=== PATIENT | male | born 1960 | race Caucasian/White ===

== ENCOUNTER 2017-08-24 13:37 | Inpatient (IN) ==
[2017-08-24] MEDS ORDERED: HYDROmorphone 2 MG/1 ML VIAL IV STA ×2 (13:54→15:30)
[2017-08-24] MEDS ORDERED: LACTATED RINGERS 1,000 ML IV STA (13:54)
[2017-08-24] MEDS ORDERED: ONDANSETRON 4 MG/2 ML VIAL IV STA ×2 (13:54→15:30)
[2017-08-24] MEDS ORDERED: ONDANSETRON 4 MG/2 ML VIAL ONE ×2 (13:55→15:30)
[2017-08-24] MEDS ORDERED: HYDROmorphone 2 MG/1 ML VIAL ONE ×2 (13:55→15:30)
[2017-08-24 16:10] LABS: Basophils # 0.1 10*3/uL (0.0-0.2); Basophils % 0.3 % (0.0-0.8); Hematocrit 45.4 VOL% (42.0-52.0); Immature Granulocytes Absolute 0.22 #; Lymphocytes # 1.1 10*3/uL (1.4-4.0); Lymphocytes % 5.4 % (21.2-54.2); Mean Corpuscular Hemoglobin 32 PG (27-34); Mean Corpuscular Volume 97.6 FL (87-102); Mean Platelet Volume 9.1 FL (9.6-12.0); Monocytes % 9.4 % (1.7-12.7); Neutrophils # 17.7 10*3/uL (1.4-7.4); Neutrophils % 83.9 % (38.7-73.9); Platelet Count 174 T/CUMM (130-400); Red Blood Count 4.65 MC/CUMM (3.8-5.5); Red Cell Distribution Width 13.2 % (9.3-17.3); White Blood Count 21.1 T/CUMM (4-12)
[2017-08-24 16:20] LABS: PT Patient Result 10.7 SECS; Partial Thromboplastin Time 23.8 SECS (0-40)
[2017-08-24] MEDS ORDERED: cefTRIAXone 1,000 MG in SODIUM CHLORIDE 0.9% 100 ML IV STA (16:22)
[2017-08-24 16:29] LABS: Alanine Aminotransferase 41 U/L (16-61); Albumin 4.1 G/DL (3.4-5.0); Alkaline Phosphatase 47 U/L (45-117); Amylase 37 U/L (25-115); Aspartate Amino Transferase 29 U/L (0-37); Blood Urea Nitrogen 25 MG/DL (7-18); Calcium 8.9 MG/DL (8.5-10.1); Glucose 136 MG/DL (74-106); Osmolality,Calculated 288.1 MOS/KG (273-304); Potassium 4.2 MMOL/L (3.5-5.1); Sodium 142 MMOL/L (136-145); Total Protein 6.9 G/DL (6.4-8.3)
[2017-08-24 16:31] LABS: CKMB % 1.7 %; Troponin I Only < 0.015 NG/ML (0.00-0.045)
[2017-08-24 16:32] LABS: Lactic Acid 2.9 MMOL/L (0.4-2.0)
[2017-08-24] MEDS ORDERED: cefTRIAXone 1,000 MG VIAL ONE (16:40)
[2017-08-24 17:25] LABS: Lymphocytes 4 % (20-55); Platelet Estimate Normal; Segmented Neutrophils 88 % (50-85); Total Cells Counted 100
[2017-08-24] MEDS ORDERED: ALUM/MAG/SIMETH/LIDO VISC 1:1 30 ML BOTTLE PO ONE (20:22)
[2017-08-24] MEDS: HYDROmorphone 2 MG/1 ML VIAL IV PRN (21:56)
[2017-08-24] MEDS: ONDANSETRON 4 MG/2 ML VIAL IV PRN (21:57)
[2017-08-24] MEDS: SUCRALFATE 1 GM TABLET PO SCH (22:05)
[2017-08-24] MEDS: METOPROLOL TARTRATE 50 MG TABLET PO SCH (22:05)
[2017-08-24] MEDS: ALBUTEROL/IPRATROPIUM 3 ML NEB RESP TX SCH (22:51)
[2017-08-25] MEDS: ALBUTEROL/IPRATROPIUM 3 ML NEB RESP TX SCH ×6 (01:13→19:26)
[2017-08-25] MEDS: HYDROmorphone 2 MG/1 ML VIAL IV PRN ×2 (02:04→06:00)
[2017-08-25] MEDS: ONDANSETRON 4 MG/2 ML VIAL IV PRN ×2 (02:05→06:08)
[2017-08-25] MEDS: LACTATED RINGERS 1,000 ML IV SCH ×4 (03:30→23:02)
[2017-08-25 03:36] LABS: Apearance,Urine CLEAR (Clear); Bilirubin,Urine Negative (Negative); Blood, Urine Moderate mg/dL (Negative); Glucose,Urine (UA) Negative (Negative); Ketones,Urine Negative (Negative); Mucus,Urine Occasional /LPF (Occasional); Nitrite,Urine Negative (Negative); Protein,Urine Negative; RBC,Urine 2 /HPF (0-4); Sperm,Urine Occasional /HPF (Negative); Urine Color Yellow (Yellow); Urine Specific Gravity 1.048 (1.001-1.035); Urine Urobilinogen < 2.0 EU/DL (0.2-1.0); WBC,Urine 2 /HPF (0-6)
[2017-08-25] MEDS ORDERED: cefTRIAXone 1,000 MG in SYRINGE 1 EACH IV SCH (05:00)
[2017-08-25 07:32] LABS: Basophils % 0.2 % (0.0-0.8); Hematocrit 40.1 VOL% (42.0-52.0); Immature Granulocytes % 0.7 %; Lymphocytes # 1.6 10*3/uL (1.4-4.0); Lymphocytes % 11.2 % (21.2-54.2); Mean Corpuscular HGB Conc 32.4 GM/DL (32-36); Mean Corpuscular Hemoglobin 32 PG (27-34); Mean Platelet Volume 9.1 FL (9.6-12.0); Monocytes # 1.8 10*3/uL (0.11-0.8); Monocytes % 12.8 % (1.7-12.7); Neutrophils # 10.6 10*3/uL (1.4-7.4); Neutrophils % 75.1 % (38.7-73.9); Platelet Count 166 T/CUMM (130-400); Red Blood Count 4.09 MC/CUMM (3.8-5.5); Red Cell Distribution Width 13.4 % (9.3-17.3); White Blood Count 14.1 T/CUMM (4-12)
[2017-08-25 08:10] LABS: Calcium 8.2 MG/DL (8.5-10.1); Osmolality,Calculated 281.4 MOS/KG (273-304); Potassium 4.1 MMOL/L (3.5-5.1)
[2017-08-25] MEDS: SUCRALFATE 1 GM TABLET PO SCH ×2 (09:25→14:30)
[2017-08-25] MEDS: METOPROLOL TARTRATE 50 MG TABLET PO SCH ×2 (09:26→21:11)
[2017-08-25] MEDS: MORPHINE 4 MG/1 ML VIAL IV PRN ×4 (09:26→23:01)
[2017-08-25] MEDS: PANTOPRAZOLE 40 MG TABLET PO SCH (09:26)
[2017-08-25] MEDS ORDERED: LOSARTAN/HCTZ 50-12.5 MG TABLET PO SCH (21:00)
[2017-08-25] MEDS ORDERED: LOSARTAN 50 MG TABLET PO SCH (21:00)
[2017-08-25] MEDS: diphenhydrAMINE CAP 25 MG CAPSULE PO PRN (21:11)
[2017-08-25] MEDS: hydroCHLOROthiazide 12.5 MG CAPSULE PO SCH (21:19)
[2017-08-25] MEDS: LOSARTAN 50 MG TABLET PO SCH (21:19)
[2017-08-25] MEDS: BIMATOPROST 0.01% OPH SOLN 2.5 ML BOTTLE BOTH EYES SCH (21:25)
[2017-08-25] MEDS: MIRTAZAPINE 30 MG TABLET PO SCH (21:26)
[2017-08-25] MEDS: clonazePAM 0.5 MG TABLET PO SCH (21:26)
[2017-08-25] MEDS: QUEtiapine 100 MG TABLET PO SCH (21:26)
[2017-08-25] MEDS: TEMAZEPAM 15 MG CAPSULE PO SCH (21:26)
[2017-08-26] MEDS ORDERED: KETOROLAC 30 MG/1 ML VIAL IV ONE (00:10)
[2017-08-26] MEDS ORDERED: NALOXONE 0.4 MG/ML VIAL IV PRN (00:13)
[2017-08-26] MEDS: MORPHINE PCA 30 MG/30 ML SYRINGE IV SCH (00:55)
[2017-08-26] MEDS: LACTATED RINGERS 1,000 ML IV SCH ×4 (01:52→14:59)
[2017-08-26] MEDS: ALBUTEROL/IPRATROPIUM 3 ML NEB RESP TX SCH ×7 (04:05→23:33)
[2017-08-26] MEDS: KETOROLAC 15 MG/1 ML VIAL IV SCH ×3 (05:45→17:03)
[2017-08-26] MEDS: TIMOLOL 0.5% OPH SOLN 5 ML BOTTLE BOTH EYES SCH (09:07)
[2017-08-26] MEDS: METOPROLOL TARTRATE 50 MG TABLET PO SCH ×2 (09:07→22:01)
[2017-08-26] MEDS: PANTOPRAZOLE 40 MG TABLET PO SCH (09:07)
[2017-08-26] MEDS: LOSARTAN 50 MG TABLET PO SCH (22:00)
[2017-08-26] MEDS: clonazePAM 0.5 MG TABLET PO SCH (22:01)
[2017-08-26] MEDS: TEMAZEPAM 15 MG CAPSULE PO SCH (22:01)
[2017-08-26] MEDS: hydroCHLOROthiazide 12.5 MG CAPSULE PO SCH (22:01)
[2017-08-26] MEDS: BIMATOPROST 0.01% OPH SOLN 2.5 ML BOTTLE BOTH EYES SCH (22:01)
[2017-08-26] MEDS: MIRTAZAPINE 30 MG TABLET PO SCH (22:01)
[2017-08-26] MEDS: QUEtiapine 100 MG TABLET PO SCH (22:02)
[2017-08-27] MEDS: KETOROLAC 15 MG/1 ML VIAL IV SCH ×5 (01:37→23:57)
[2017-08-27] MEDS: ALBUTEROL/IPRATROPIUM 3 ML NEB RESP TX SCH ×5 (03:30→19:19)
[2017-08-27] MEDS: MORPHINE PCA 30 MG/30 ML SYRINGE IV SCH ×2 (05:57→18:21)
[2017-08-27] MEDS: diphenhydrAMINE CAP 25 MG CAPSULE PO PRN ×3 (06:31→18:16)
[2017-08-27] MEDS: PANTOPRAZOLE 40 MG TABLET PO SCH (08:08)
[2017-08-27] MEDS: METOPROLOL TARTRATE 50 MG TABLET PO SCH ×2 (08:08→20:37)
[2017-08-27 09:21] LABS: Osmolality,Calculated 284.1 MOS/KG (273-304); Potassium 3.6 MMOL/L (3.5-5.1)
[2017-08-27] MEDS ORDERED: BUPIVACAINE 0.5% 50 ML VIAL ONE (10:55)
[2017-08-27] MEDS ORDERED: TRIAMCINOLONE ACETONIDE 40 MG/1 ML VIAL ONE (10:55)
[2017-08-27] MEDS ORDERED: PROPOFOL 200 MG/20 ML VIAL IV ONE (12:06)
[2017-08-27] MEDS ORDERED: fentaNYL 100 MCG/2 ML VIAL ONE (12:07)
[2017-08-27] MEDS ORDERED: MIDAZOLAM 2 MG/2 ML VIAL ONE (12:07)
[2017-08-27] MEDS: TIMOLOL 0.5% OPH SOLN 5 ML BOTTLE BOTH EYES SCH (12:51)
[2017-08-27] MEDS: LIDOCAINE 5% PATCH TRANSDERM SCH (12:51)
[2017-08-27] MEDS: hydroCHLOROthiazide 12.5 MG CAPSULE PO SCH (20:37)
[2017-08-27] MEDS: LOSARTAN 50 MG TABLET PO SCH (20:38)
[2017-08-27] MEDS: clonazePAM 0.5 MG TABLET PO SCH (20:39)
[2017-08-27] MEDS: MIRTAZAPINE 30 MG TABLET PO SCH (20:39)
[2017-08-27] MEDS: QUEtiapine 100 MG TABLET PO SCH (20:39)
[2017-08-27] MEDS: TEMAZEPAM 15 MG CAPSULE PO SCH (20:39)
[2017-08-27] MEDS: BIMATOPROST 0.01% OPH SOLN 2.5 ML BOTTLE BOTH EYES SCH (20:40)
[2017-08-27] MEDS ORDERED: BISACODYL 5 MG TABLET PO ONE (21:00)
[2017-08-28] MEDS: ALBUTEROL/IPRATROPIUM 3 ML NEB RESP TX SCH ×8 (00:44→22:42)
[2017-08-28] MEDS: diphenhydrAMINE CAP 25 MG CAPSULE PO PRN ×3 (04:07→17:33)
[2017-08-28] MEDS: KETOROLAC 15 MG/1 ML VIAL IV SCH ×4 (05:48→23:21)
[2017-08-28 06:50] LABS: Basophils % 0.3 % (0.0-0.8); Eosinophils % 0.2 % (0.00-10.9); Hemoglobin 11.8 GM/DL (14.0-18.0); Immature Granulocytes % 0.9 %; Immature Granulocytes Absolute 0.11 #; Lymphocytes # 1.4 10*3/uL (1.4-4.0); Lymphocytes % 11.8 % (21.2-54.2); Mean Corpuscular HGB Conc 33.7 GM/DL (32-36); Mean Corpuscular Hemoglobin 33 PG (27-34); Mean Corpuscular Volume 97.2 FL (87-102); Mean Platelet Volume 8.9 FL (9.6-12.0); Monocytes % 8.9 % (1.7-12.7); Neutrophils # 9.1 10*3/uL (1.4-7.4); Neutrophils % 77.9 % (38.7-73.9); Platelet Count 174 T/CUMM (130-400); Red Cell Distribution Width 12.7 % (9.3-17.3); White Blood Count 11.7 T/CUMM (4-12)
[2017-08-28] MEDS: MORPHINE PCA 30 MG/30 ML SYRINGE IV SCH ×2 (08:03→18:20)
[2017-08-28] MEDS: LIDOCAINE 5% PATCH TRANSDERM SCH (08:06)
[2017-08-28] MEDS: TIMOLOL 0.5% OPH SOLN 5 ML BOTTLE BOTH EYES SCH (08:07)
[2017-08-28] MEDS: METOPROLOL TARTRATE 50 MG TABLET PO SCH ×2 (08:07→20:33)
[2017-08-28] MEDS: PANTOPRAZOLE 40 MG TABLET PO SCH (08:07)
[2017-08-28] MEDS: ENOXAPARIN 40 MG/0.4 ML SYRINGE SUBCUT SCH (11:39)
[2017-08-28] MEDS: hydroCHLOROthiazide 12.5 MG CAPSULE PO SCH (20:33)
[2017-08-28] MEDS: LOSARTAN 50 MG TABLET PO SCH (20:33)
[2017-08-28] MEDS: MIRTAZAPINE 30 MG TABLET PO SCH (20:34)
[2017-08-28] MEDS: QUEtiapine 100 MG TABLET PO SCH (20:34)
[2017-08-28] MEDS: BIMATOPROST 0.01% OPH SOLN 2.5 ML BOTTLE BOTH EYES SCH (20:34)
[2017-08-28] MEDS: clonazePAM 0.5 MG TABLET PO SCH (20:34)
[2017-08-28] MEDS: TEMAZEPAM 15 MG CAPSULE PO SCH (20:34)
[2017-08-29] MEDS: ALBUTEROL/IPRATROPIUM 3 ML NEB RESP TX SCH ×4 (02:34→14:01)
[2017-08-29] MEDS: KETOROLAC 15 MG/1 ML VIAL IV SCH ×2 (05:18→11:03)
[2017-08-29] MEDS: MORPHINE PCA 30 MG/30 ML SYRINGE IV SCH (06:32)
[2017-08-29] MEDS: oxyCODONE/ACETAMINOPHEN 5-325 MG TABLET PO PRN ×3 (08:38→16:35)
[2017-08-29] MEDS: PANTOPRAZOLE 40 MG TABLET PO SCH (08:39)
[2017-08-29] MEDS: LIDOCAINE 5% PATCH TRANSDERM SCH (08:39)
[2017-08-29] MEDS: METOPROLOL TARTRATE 50 MG TABLET PO SCH (08:39)
[2017-08-29] MEDS: TIMOLOL 0.5% OPH SOLN 5 ML BOTTLE BOTH EYES SCH (08:39)
[2017-08-29] MEDS: ENOXAPARIN 40 MG/0.4 ML SYRINGE SUBCUT SCH (11:04)
[2017-08-29 11:13] VITALS: BP 140/91
== END 2017-08-29 17:50 | disposition home health service (06) | DRG 206 ==
LOC: EDUNIT# → EDBD → N.ED 13:37 → N.EDINP 17:48 → N.TELES 19:26 → N.3E 08-25 14:36
PROVIDERS: ADMIT Surgery; ATTEND Surgery

== ENCOUNTER 2017-09-02 12:55 | Inpatient (IN) ==
[2017-09-02] MEDS ORDERED: PROMETHAZINE 25 MG/1 ML VIAL IM PRN (14:21)
[2017-09-02] MEDS ORDERED: ACETAMINOPHEN 325 MG TABLET PO PRN (14:21)
[2017-09-02] MEDS ORDERED: MORPHINE 4 MG/1 ML VIAL IV PRN (14:21)
[2017-09-02] MEDS: LACTATED RINGERS 1,000 ML IV SCH (15:50)
[2017-09-02] MEDS: KETOROLAC 15 MG/1 ML VIAL IV SCH ×2 (15:55→21:30)
[2017-09-02] MEDS: LEVOFLOXACIN INJ 750 MG in PREMIX 1 EACH IV SCH (16:01)
[2017-09-02] MEDS: POLYETHYLENE GLYCOL POWDER 17 GM PACK PO SCH (16:08)
[2017-09-02 16:23] LABS: Basophils # 0.1 10*3/uL (0.0-0.2); Basophils % 0.4 % (0.0-0.8); Eosinophils # 0.1 10*3/uL (0.0-0.87); Eosinophils % 0.9 % (0.00-10.9); Hematocrit 34.8 VOL% (42.0-52.0); Hemoglobin 11.3 GM/DL (14.0-18.0); Immature Granulocytes % 1.7 %; Immature Granulocytes Absolute 0.25 #; Lymphocytes # 1.9 10*3/uL (1.4-4.0); Lymphocytes % 12.9 % (21.2-54.2); Mean Corpuscular HGB Conc 32.5 GM/DL (32-36); Mean Corpuscular Hemoglobin 33 PG (27-34); Mean Corpuscular Volume 100.9 FL (87-102); Mean Platelet Volume 8.6 FL (9.6-12.0); Monocytes # 2.2 10*3/uL (0.11-0.8); Monocytes % 15.4 % (1.7-12.7); Neutrophils # 9.8 10*3/uL (1.4-7.4); Neutrophils % 68.7 % (38.7-73.9); Platelet Count 240 T/CUMM (130-400); Red Blood Count 3.45 MC/CUMM (3.8-5.5); Red Cell Distribution Width 13.5 % (9.3-17.3); White Blood Count 14.3 T/CUMM (4-12)
[2017-09-02 16:35] LABS: PT Patient Result 10.7 SECS; Partial Thromboplastin Time 28.4 SECS (0-40)
[2017-09-02 16:37] LABS: Albumin 3.2 G/DL (3.4-5.0); Bilirubin,Total 0.6 MG/DL (0.2-1.0); Osmolality,Calculated 279.7 MOS/KG (273-304)
[2017-09-02] MEDS: BIMATOPROST 0.01% OPH SOLN 2.5 ML BOTTLE BOTH EYES SCH (21:33)
[2017-09-03] MEDS: QUEtiapine 100 MG TABLET PO SCH ×2 (00:26→20:19)
[2017-09-03] MEDS: MIRTAZAPINE 30 MG TABLET PO SCH ×2 (00:26→20:19)
[2017-09-03] MEDS: TEMAZEPAM 15 MG CAPSULE PO SCH ×2 (00:26→20:19)
[2017-09-03] MEDS: LACTATED RINGERS 1,000 ML IV SCH ×5 (00:27→12:36)
[2017-09-03] MEDS: KETOROLAC 15 MG/1 ML VIAL IV SCH ×4 (03:20→20:41)
[2017-09-03] MEDS ORDERED: ENOXAPARIN 40 MG/0.4 ML SYRINGE SUBCUT SCH (07:36)
[2017-09-03] MEDS: LIDOCAINE 5% PATCH TRANSDERM SCH (08:59)
[2017-09-03] MEDS: TIMOLOL 0.5% OPH SOLN 5 ML BOTTLE BOTH EYES SCH (09:48)
[2017-09-03] MEDS ORDERED: LIDOCAINE 1%/EPI INJ 20 ML VIAL ONE (10:56)
[2017-09-03] MEDS ORDERED: PROPOFOL 200 MG/20 ML VIAL IV ONE (12:10)
[2017-09-03] MEDS ORDERED: HYDROmorphone 2 MG/1 ML VIAL ONE (12:10)
[2017-09-03] MEDS ORDERED: ONDANSETRON 4 MG/2 ML VIAL ONE (12:11)
[2017-09-03] MEDS ORDERED: MIDAZOLAM 2 MG/2 ML VIAL ONE (12:11)
[2017-09-03] MEDS ORDERED: fentaNYL 100 MCG/2 ML VIAL ONE (12:11)
[2017-09-03] MEDS: PANTOPRAZOLE 40 MG TABLET PO SCH (12:36)
[2017-09-03] MEDS: POLYETHYLENE GLYCOL POWDER 17 GM PACK PO SCH (12:36)
[2017-09-03] MEDS ORDERED: FUROSEMIDE 40 MG/4 ML VIAL IV ONE (13:40)
[2017-09-03] MEDS: HYDROmorphone 2 MG/1 ML VIAL IV PRN ×2 (14:47→20:59)
[2017-09-03] MEDS: LEVOFLOXACIN INJ 750 MG in PREMIX 1 EACH IV SCH (15:12)
[2017-09-03] MEDS: BIMATOPROST 0.01% OPH SOLN 2.5 ML BOTTLE BOTH EYES SCH (20:19)
[2017-09-03] MEDS ORDERED: BISACODYL 5 MG TABLET PO ONE (22:35)
[2017-09-04] MEDS: KETOROLAC 15 MG/1 ML VIAL IV SCH ×4 (03:05→21:44)
[2017-09-04 04:56] LABS: Basophils % 0.4 % (0.0-0.8); Eosinophils # 0.2 10*3/uL (0.0-0.87); Eosinophils % 2.3 % (0.00-10.9); Hematocrit 30.4 VOL% (42.0-52.0); Hemoglobin 9.6 GM/DL (14.0-18.0); Immature Granulocytes % 1.3 %; Immature Granulocytes Absolute 0.14 #; Lymphocytes # 1.5 10*3/uL (1.4-4.0); Lymphocytes % 14.3 % (21.2-54.2); Mean Corpuscular HGB Conc 31.6 GM/DL (32-36); Mean Corpuscular Hemoglobin 32 PG (27-34); Mean Corpuscular Volume 100.3 FL (87-102); Mean Platelet Volume 9.1 FL (9.6-12.0); Monocytes # 1.3 10*3/uL (0.11-0.8); Monocytes % 12.2 % (1.7-12.7); Neutrophils # 7.3 10*3/uL (1.4-7.4); Neutrophils % 69.5 % (38.7-73.9); Platelet Count 202 T/CUMM (130-400); Red Blood Count 3.03 MC/CUMM (3.8-5.5); Red Cell Distribution Width 12.9 % (9.3-17.3); White Blood Count 10.5 T/CUMM (4-12)
[2017-09-04 05:24] LABS: Osmolality,Calculated 286.3 MOS/KG (273-304); Potassium 3.7 MMOL/L (3.5-5.1)
[2017-09-04] MEDS: oxyCODONE/ACETAMINOPHEN 5-325 MG TABLET PO PRN ×2 (05:41→18:48)
[2017-09-04] MEDS: LIDOCAINE 5% PATCH TRANSDERM SCH (09:47)
[2017-09-04] MEDS: POLYETHYLENE GLYCOL POWDER 17 GM PACK PO SCH (09:49)
[2017-09-04] MEDS: PANTOPRAZOLE 40 MG TABLET PO SCH (09:49)
[2017-09-04] MEDS: TIMOLOL 0.5% OPH SOLN 5 ML BOTTLE BOTH EYES SCH (09:49)
[2017-09-04] MEDS: LACTATED RINGERS 1,000 ML IV SCH (11:21)
[2017-09-04] MEDS: fentaNYL 25 MCG/HR PATCH TRANSDERM SCH (11:55)
[2017-09-04] MEDS: ALBUTEROL/IPRATROPIUM 3 ML NEB RESP TX SCH ×2 (13:08→19:46)
[2017-09-04] MEDS: LEVOFLOXACIN INJ 750 MG in PREMIX 1 EACH IV SCH (15:05)
[2017-09-04] MEDS: BISACODYL 10 MG SUPP RECTAL SCH ×2 (15:14→21:42)
[2017-09-04] MEDS: BIMATOPROST 0.01% OPH SOLN 2.5 ML BOTTLE BOTH EYES SCH (21:42)
[2017-09-04] MEDS: MIRTAZAPINE 30 MG TABLET PO SCH (22:32)
[2017-09-04] MEDS: TEMAZEPAM 15 MG CAPSULE PO SCH (22:33)
[2017-09-04] MEDS: QUEtiapine 100 MG TABLET PO SCH (22:33)
[2017-09-05] MEDS: ALBUTEROL/IPRATROPIUM 3 ML NEB RESP TX SCH ×4 (01:16→19:37)
[2017-09-05] MEDS: KETOROLAC 15 MG/1 ML VIAL IV SCH ×4 (02:23→20:37)
[2017-09-05 05:31] LABS: Basophils % 0.4 % (0.0-0.8); Eosinophils # 0.2 10*3/uL (0.0-0.87); Hematocrit 30.5 VOL% (42.0-52.0); Hemoglobin 9.8 GM/DL (14.0-18.0); Immature Granulocytes % 1.2 %; Immature Granulocytes Absolute 0.13 #; Lymphocytes # 1.9 10*3/uL (1.4-4.0); Lymphocytes % 17.4 % (21.2-54.2); Mean Corpuscular HGB Conc 32.1 GM/DL (32-36); Mean Corpuscular Hemoglobin 32 PG (27-34); Mean Platelet Volume 9.1 FL (9.6-12.0); Monocytes # 1.3 10*3/uL (0.11-0.8); Neutrophils # 7.4 10*3/uL (1.4-7.4); Platelet Count 229 T/CUMM (130-400); Red Blood Count 3.05 MC/CUMM (3.8-5.5); Red Cell Distribution Width 12.7 % (9.3-17.3)
[2017-09-05] MEDS: oxyCODONE/ACETAMINOPHEN 5-325 MG TABLET PO PRN ×2 (06:59→18:04)
[2017-09-05] MEDS: TIMOLOL 0.5% OPH SOLN 5 ML BOTTLE BOTH EYES SCH (10:10)
[2017-09-05] MEDS: LIDOCAINE 5% PATCH TRANSDERM SCH (10:12)
[2017-09-05] MEDS: BISACODYL 10 MG SUPP RECTAL SCH ×2 (10:12→20:48)
[2017-09-05] MEDS: POLYETHYLENE GLYCOL POWDER 17 GM PACK PO SCH (10:13)
[2017-09-05] MEDS: PANTOPRAZOLE 40 MG TABLET PO SCH (10:13)
[2017-09-05] MEDS: LACTATED RINGERS 1,000 ML IV SCH (12:19)
[2017-09-05] MEDS: cefTRIAXone 1,000 MG in SYRINGE 1 EACH IV SCH (12:32)
[2017-09-05] MEDS: LEVOFLOXACIN INJ 750 MG in PREMIX 1 EACH IV SCH (15:34)
[2017-09-05] MEDS: HYDROmorphone 2 MG/1 ML VIAL IV PRN (18:04)
[2017-09-05] MEDS: BIMATOPROST 0.01% OPH SOLN 2.5 ML BOTTLE BOTH EYES SCH (20:36)
[2017-09-05] MEDS: TEMAZEPAM 15 MG CAPSULE PO SCH (20:49)
[2017-09-05] MEDS: MIRTAZAPINE 30 MG TABLET PO SCH (20:49)
[2017-09-05] MEDS: QUEtiapine 100 MG TABLET PO SCH (20:49)
[2017-09-06] MEDS: ALBUTEROL/IPRATROPIUM 3 ML NEB RESP TX SCH ×4 (01:14→19:15)
[2017-09-06] MEDS: KETOROLAC 15 MG/1 ML VIAL IV SCH ×4 (04:01→20:27)
[2017-09-06] MEDS: HYDROmorphone 2 MG/1 ML VIAL IV PRN ×4 (08:04→12:06)
[2017-09-06] MEDS ORDERED: TISSUE ADHESIVE 1 EACH APPLICATOR TOP ONE (09:13)
[2017-09-06] MEDS ORDERED: LIDOCAINE 1%/EPI INJ 20 ML VIAL ONE (09:13)
[2017-09-06] MEDS ORDERED: BUPIVACAINE MPF 0.25% 30 ML VIAL ONE (09:14)
[2017-09-06] MEDS: LIDOCAINE 5% PATCH TRANSDERM SCH (10:49)
[2017-09-06] MEDS: BISACODYL 10 MG SUPP RECTAL SCH ×2 (10:49→21:01)
[2017-09-06] MEDS: POLYETHYLENE GLYCOL POWDER 17 GM PACK PO SCH (10:49)
[2017-09-06] MEDS: PANTOPRAZOLE 40 MG TABLET PO SCH (10:49)
[2017-09-06] MEDS: TIMOLOL 0.5% OPH SOLN 5 ML BOTTLE BOTH EYES SCH (10:50)
[2017-09-06] MEDS ORDERED: ONDANSETRON 4 MG/2 ML VIAL IV PRN (11:43)
[2017-09-06] MEDS ORDERED: SEVOFLURANE 1 UNIT/15 MINUTE INH ONE (11:43)
[2017-09-06] MEDS ORDERED: fentaNYL 100 MCG/2 ML VIAL ONE (11:44)
[2017-09-06] MEDS ORDERED: SODIUM CHLORIDE 0.9% 1,000 ML IV ONE (11:44)
[2017-09-06] MEDS ORDERED: MIDAZOLAM 2 MG/2 ML VIAL ONE (11:44)
[2017-09-06] MEDS ORDERED: GLYCOPYRROLATE 0.4 MG/2 ML VIAL ONE (11:45)
[2017-09-06] MEDS ORDERED: PHENYLEPHRINE 10 MG/1 ML VIAL IV ONE (11:45)
[2017-09-06] MEDS ORDERED: ONDANSETRON 4 MG/2 ML VIAL ONE (11:45)
[2017-09-06] MEDS ORDERED: PROPOFOL 200 MG/20 ML VIAL IV ONE (11:45)
[2017-09-06] MEDS ORDERED: NEOSTIGMINE 10 MG/10 ML VIAL ONE (11:45)
[2017-09-06] MEDS ORDERED: HYDROmorphone 2 MG/1 ML VIAL ONE (11:46)
[2017-09-06] MEDS ORDERED: ROCURONIUM 100 MG/10 ML VIAL IV ONE (11:46)
[2017-09-06] MEDS: oxyCODONE/ACETAMINOPHEN 5-325 MG TABLET PO PRN ×2 (13:37→23:59)
[2017-09-06] MEDS: cefTRIAXone 1,000 MG in SYRINGE 1 EACH IV SCH (14:37)
[2017-09-06] MEDS: LACTATED RINGERS 1,000 ML IV SCH (14:40)
[2017-09-06] MEDS: LEVOFLOXACIN INJ 750 MG in PREMIX 1 EACH IV SCH (16:55)
[2017-09-06] MEDS: QUEtiapine 100 MG TABLET PO SCH (21:02)
[2017-09-06] MEDS: MIRTAZAPINE 30 MG TABLET PO SCH (21:02)
[2017-09-06] MEDS: BIMATOPROST 0.01% OPH SOLN 2.5 ML BOTTLE BOTH EYES SCH (21:02)
[2017-09-06] MEDS: TEMAZEPAM 15 MG CAPSULE PO SCH (21:02)
[2017-09-07] MEDS: ALBUTEROL/IPRATROPIUM 3 ML NEB RESP TX SCH ×4 (00:57→19:43)
[2017-09-07] MEDS: KETOROLAC 15 MG/1 ML VIAL IV SCH ×2 (03:21→08:36)
[2017-09-07 05:16] LABS: Basophils # 0.1 10*3/uL (0.0-0.2); Basophils % 0.5 % (0.0-0.8); Eosinophils # 0.3 10*3/uL (0.0-0.87); Eosinophils % 2.7 % (0.00-10.9); Immature Granulocytes % 0.8 %; Immature Granulocytes Absolute 0.09 #; Lymphocytes # 1.4 10*3/uL (1.4-4.0); Lymphocytes % 11.3 % (21.2-54.2); Mean Corpuscular HGB Conc 32.3 GM/DL (32-36); Mean Corpuscular Hemoglobin 32 PG (27-34); Mean Platelet Volume 8.6 FL (9.6-12.0); Monocytes # 1.4 10*3/uL (0.11-0.8); Monocytes % 11.5 % (1.7-12.7); Neutrophils # 8.8 10*3/uL (1.4-7.4); Neutrophils % 73.2 % (38.7-73.9); Platelet Count 258 T/CUMM (130-400); Red Cell Distribution Width 12.5 % (9.3-17.3)
[2017-09-07] MEDS: oxyCODONE/ACETAMINOPHEN 5-325 MG TABLET PO PRN ×3 (08:16→21:38)
[2017-09-07] MEDS: PANTOPRAZOLE 40 MG TABLET PO SCH (08:17)
[2017-09-07] MEDS: LIDOCAINE 5% PATCH TRANSDERM SCH (08:19)
[2017-09-07] MEDS: TIMOLOL 0.5% OPH SOLN 5 ML BOTTLE BOTH EYES SCH (08:39)
[2017-09-07] MEDS: POLYETHYLENE GLYCOL POWDER 17 GM PACK PO SCH (10:14)
[2017-09-07] MEDS: BISACODYL 10 MG SUPP RECTAL SCH ×2 (10:15→21:58)
[2017-09-07] MEDS: fentaNYL 25 MCG/HR PATCH TRANSDERM SCH (10:32)
[2017-09-07] MEDS: cefTRIAXone 1,000 MG in SYRINGE 1 EACH IV SCH (10:34)
[2017-09-07] MEDS: ONDANSETRON 4 MG/2 ML VIAL IV PRN (11:13)
[2017-09-07] MEDS: LACTATED RINGERS 1,000 ML IV SCH (13:30)
[2017-09-07] MEDS: HYDROmorphone 2 MG/1 ML VIAL IV PRN (16:51)
[2017-09-07] MEDS: LEVOFLOXACIN INJ 750 MG in PREMIX 1 EACH IV SCH (17:00)
[2017-09-07] MEDS: BIMATOPROST 0.01% OPH SOLN 2.5 ML BOTTLE BOTH EYES SCH (21:58)
[2017-09-07] MEDS: QUEtiapine 100 MG TABLET PO SCH (21:59)
[2017-09-07] MEDS: MIRTAZAPINE 30 MG TABLET PO SCH (21:59)
[2017-09-07] MEDS: TEMAZEPAM 15 MG CAPSULE PO SCH (21:59)
[2017-09-08] MEDS: ALBUTEROL/IPRATROPIUM 3 ML NEB RESP TX SCH ×4 (01:05→20:28)
[2017-09-08] MEDS: HYDROmorphone 2 MG/1 ML VIAL IV PRN ×2 (01:53→17:40)
[2017-09-08] MEDS: IBUPROFEN 400 MG TABLET PO PRN ×2 (01:58→17:38)
[2017-09-08] MEDS: LIDOCAINE 5% PATCH TRANSDERM SCH (11:26)
[2017-09-08] MEDS: TIMOLOL 0.5% OPH SOLN 5 ML BOTTLE BOTH EYES SCH (11:27)
[2017-09-08] MEDS: BISACODYL 10 MG SUPP RECTAL SCH ×3 (11:28→21:07)
[2017-09-08] MEDS: PANTOPRAZOLE 40 MG TABLET PO SCH (11:28)
[2017-09-08] MEDS: oxyCODONE/ACETAMINOPHEN 5-325 MG TABLET PO PRN ×2 (11:34→21:11)
[2017-09-08] MEDS: LACTATED RINGERS 1,000 ML IV SCH (11:36)
[2017-09-08] MEDS: cefTRIAXone 1,000 MG in SYRINGE 1 EACH IV SCH (11:57)
[2017-09-08] MEDS: POLYETHYLENE GLYCOL POWDER 17 GM PACK PO SCH (15:38)
[2017-09-08] MEDS: LEVOFLOXACIN INJ 750 MG in PREMIX 1 EACH IV SCH (15:44)
[2017-09-08] MEDS: MIRTAZAPINE 30 MG TABLET PO SCH (21:07)
[2017-09-08] MEDS: BIMATOPROST 0.01% OPH SOLN 2.5 ML BOTTLE BOTH EYES SCH (21:07)
[2017-09-08] MEDS: QUEtiapine 100 MG TABLET PO SCH (21:09)
[2017-09-08] MEDS: TEMAZEPAM 15 MG CAPSULE PO SCH (21:09)
[2017-09-08] MEDS: ONDANSETRON 4 MG/2 ML VIAL IV PRN (21:10)
[2017-09-09] MEDS: IBUPROFEN 400 MG TABLET PO PRN ×3 (00:30→22:19)
[2017-09-09] MEDS: HYDROmorphone 2 MG/1 ML VIAL IV PRN ×2 (00:33→10:31)
[2017-09-09] MEDS: ALBUTEROL/IPRATROPIUM 3 ML NEB RESP TX SCH ×4 (01:23→20:12)
[2017-09-09] MEDS: oxyCODONE/ACETAMINOPHEN 5-325 MG TABLET PO PRN ×2 (02:33→22:15)
[2017-09-09] MEDS: ONDANSETRON 4 MG/2 ML VIAL IV PRN ×3 (02:34→21:13)
[2017-09-09] MEDS: POLYETHYLENE GLYCOL POWDER 17 GM PACK PO SCH (08:23)
[2017-09-09] MEDS: BISACODYL 10 MG SUPP RECTAL SCH ×2 (08:23→21:13)
[2017-09-09] MEDS: TIMOLOL 0.5% OPH SOLN 5 ML BOTTLE BOTH EYES SCH (08:31)
[2017-09-09] MEDS: PANTOPRAZOLE 40 MG TABLET PO SCH (08:31)
[2017-09-09] MEDS: LIDOCAINE 5% PATCH TRANSDERM SCH (08:31)
[2017-09-09] MEDS: cefTRIAXone 1,000 MG in SYRINGE 1 EACH IV SCH (09:31)
[2017-09-09] MEDS: LACTATED RINGERS 1,000 ML IV SCH (12:43)
[2017-09-09] MEDS: LEVOFLOXACIN INJ 750 MG in PREMIX 1 EACH IV SCH (15:51)
[2017-09-09] MEDS: TEMAZEPAM 15 MG CAPSULE PO SCH (21:13)
[2017-09-09] MEDS: MIRTAZAPINE 30 MG TABLET PO SCH (21:13)
[2017-09-09] MEDS: QUEtiapine 100 MG TABLET PO SCH (21:13)
[2017-09-09] MEDS: BIMATOPROST 0.01% OPH SOLN 2.5 ML BOTTLE BOTH EYES SCH (21:13)
[2017-09-10] MEDS: ALBUTEROL/IPRATROPIUM 3 ML NEB RESP TX SCH ×3 (00:40→13:02)
[2017-09-10] MEDS: BISACODYL 10 MG SUPP RECTAL SCH ×2 (08:04→13:33)
[2017-09-10] MEDS: POLYETHYLENE GLYCOL POWDER 17 GM PACK PO SCH (08:04)
[2017-09-10] MEDS: fentaNYL 25 MCG/HR PATCH TRANSDERM SCH (09:16)
[2017-09-10] MEDS: TIMOLOL 0.5% OPH SOLN 5 ML BOTTLE BOTH EYES SCH (09:30)
[2017-09-10] MEDS: PANTOPRAZOLE 40 MG TABLET PO SCH (09:30)
[2017-09-10] MEDS: LIDOCAINE 5% PATCH TRANSDERM SCH (09:30)
[2017-09-10] MEDS: cefTRIAXone 1,000 MG in SYRINGE 1 EACH IV SCH (10:37)
[2017-09-10] MEDS: LACTATED RINGERS 1,000 ML IV SCH (10:38)
[2017-09-10 11:10] VITALS: BP 119/78
[2017-09-10] MEDS: oxyCODONE/ACETAMINOPHEN 5-325 MG TABLET PO PRN (13:32)
[2017-09-10] MEDS: LEVOFLOXACIN INJ 750 MG in PREMIX 1 EACH IV SCH (14:38)
== END 2017-09-10 17:15 | disposition home health service (06) | DRG 164 ==
LOC: N.3E 13:34
PROVIDERS: ADMIT Surgery; ATTEND Surgery